=== PATIENT | female | born 1990 | race Two or more races ===

== ENCOUNTER 2022-07-21 14:42 | Emergency (ER) | payer BC, OTHER ==
[~2022-07-21] VITALS: Ht 157.5 cm; Wt 64.4 kg
[2022-07-21 15:06] VITALS: BP 113/84
[2022-07-21] MEDS ORDERED: DIATR MEGLU/DIATRIZOATE SODIUM 30 ML BOTTLE (GASTROGRAPHIN) ONE (15:37)
--- NOTE | 2022-07-21 15:55 | NUR ---
REPORT GIVEN TO RN TAKING CARE OF HER AND DR PEÑA ALSO EXPLAINED TO HER THAT THE TUBE IS WORKING AND THERE'S NO LEAKAGE OF CONTRAST MEDIA. THEY NEED TO CONSULT THEIR GI THRU PMD IF THEY WANT IT CHANGED TO A BIGGER SIZE
--- NOTE | 2022-07-21 15:59 | NUR ---
[facility] CALLED FOR TRANSPORT ETA 60 MINS.
--- NOTE | 2022-07-21 16:30 | NUR ---
DRESSING CHANGE DONE ON GT SITE.
== END 2022-07-21 17:44 | disposition home or self-care (01) ==
LOC: ER 14:48
DX: K94.23 Gastrostomy malfunction (principal); Z88.8 Allergy status to other drugs, medicaments and biological substances; Z91.018 Allergy to other foods
CPT/HCPCS: 99283; 74018; A6403; Q9963